=== PATIENT | female | born 2000 | race Caucasian/White ===

== ENCOUNTER 2019-11-19 09:55 | Emergency (ER) | payer MEDICAID ==
[~2019-11-19] VITALS: Ht 162.6 cm; Wt 54.5 kg
[2019-11-19 09:58] VITALS: Ht 162.6 cm; Wt 54.5 kg
[2019-11-19 10:14] LABS: BILIRUBIN NEGATIVE (NEGATIVE); GLUCOSE NEGATIVE (NEGATIVE); KETONE NEGATIVE (NEGATIVE); NITRITE NEGATIVE (NEGATIVE); UROBILINOGEN NORMAL (NORMAL)
[2019-11-19 10:18] LABS: BACTERIA MANY /hpf (NEGATIVE); EPITHELIAL CELLS 0-5 /hpf (0-5); RED CELLS - URINE 0-5 /hpf (0-5)
[2019-11-19 11:09] LABS: HEMATOCRIT 36.8 % (36.0-48.0); HEMOGLOBIN 12.6 g/dL (12-16); LYMPHOCYTES 21.8 % (15-50); MCH 28.7 pg (26.0-34.0); MCHC 34.2 g/dL (31.0-37.0); MCV 83.8 fL (80.0-100.0); MEAN PLATELET VOLUME 8.3 fL (7.4-10.4); PLATELET COUNT 273 10x3/uL (130-400); RBC 4.39 10x6/uL (4.00-5.40); RDW 12.6 % (11.5-14.5); WBC 8.3 10x3/uL (4.8-10.8)
[2019-11-19 11:13] LABS: CALC OSMOLALITY 271 mosm/kg (275-300); CALCIUM 8.4 mg/dL (8.5-10.1); CARBON DIOXIDE 26.7 mmol/L (21.0-32.0); CHLORIDE - SERUM 102 mmol/L (98-107); GLUCOSE 99 mg/dL (74-106); POTASSIUM - SERUM 3.7 mmol/L (3.5-5.1); SODIUM 137 mmol/L (136-145); UREA NITROGEN 7 mg/dL (7-18); eGFR NON AFRICAN AMERICAN 75 mL/min (90-120)
[2019-11-19 11:20] LABS: ALBUMIN 3.5 g/dL (3.4-5.0); ALKALINE PHOSPHATASE 71 U/L (30-120); ALT (SGPT) 16 U/L (10-68); BILIRUBIN - TOTAL 0.38 mg/dL (0.2-1.3); HCG - QUANTITATIVE (MATERNAL) 183 mIU/mL; PROTEIN - SERUM 6.7 g/dL (6.4-8.2)
[2019-11-19] MEDS ORDERED: KEFLEX500 MG PO (12:28)
[2019-11-19 13:09] VITALS: BP 120/62
== END 2019-11-19 13:09 | disposition home or self-care (01) ==
LOC: D.ER 09:55
PROVIDERS: Family Medicine
DX: O23.41 Unspecified infection of urinary tract in pregnancy, first trimester (principal); O20.0 Threatened abortion; R10.9 Unspecified abdominal pain; Z3A.00 Weeks of gestation of pregnancy not specified

== ENCOUNTER 2020-07-05 09:25 | Outpatient (CLI) | payer MEDICAID ==
[2020-04-07 20:56] VITALS: BMI 27.1
[~2020-07-05 09:25] MED LIST: KEFLEX500 MG PO; PRENAVITE1 TAB PO
== END 2020-07-05 12:12 ==
LOC: D.LDO 09:25
PROVIDERS: ATTEND Student in an Organized Health Care Education/Training Program
DX: O13.9 Gestational [pregnancy-induced] hypertension without significant proteinuria, unspecified trimester (principal)

== ENCOUNTER 2020-07-09 14:10 | Outpatient (CLI) | payer MEDICAID ==
[2020-04-07 20:56] VITALS: BMI 27.1
[2020-07-11 19:32] VITALS: BMI 30.8
== END 2020-07-09 14:48 | disposition home or self-care (01) ==
LOC: D.LDO 14:10
PROVIDERS: ATTEND Student in an Organized Health Care Education/Training Program
DX: O16.9 Unspecified maternal hypertension, unspecified trimester (principal)

== ENCOUNTER 2020-07-11 12:55 | Inpatient (IN) | payer MEDICAID ==
[~2020-07-11] VITALS: Ht 162.6 cm; Wt 81.2 kg
[2020-07-11 14:08] LABS: BASOPHILS 0.1 % (0-2); EOSINOPHILS 0.3 % (0-7); HEMATOCRIT 31.9 % (36.0-48.0); HEMOGLOBIN 9.9 g/dL (12-16); IMMATURE GRANULOCYTES 0.6 % (0-5); LYMPHOCYTE ABS# 2.02 10x3/uL (1.18-3.74); LYMPHOCYTES 14.5 % (15-50); MCH 24.9 pg (26.0-34.0); MCV 80.2 fL (80.0-100.0); MEAN PLATELET VOLUME 8.1 fL (7.4-10.4); MONOCYTES 6.1 % (2-11); NEUTROPHIL ABS# 10.93 10x3/uL (1.56-6.13); NEUTROPHILS 78.4 % (40-80); PLATELET COUNT 210 10x3/uL (130-400); RBC 3.98 10x6/uL (4.00-5.40); RDW 14.7 % (11.5-14.5); WBC 13.9 10x3/uL (4.8-10.8)
[2020-07-11 14:10] LABS: CALC OSMOLALITY 264 mosm/kg (275-300); CALCIUM 8.4 mg/dL (8.5-10.1); CARBON DIOXIDE 22.3 mmol/L (21.0-32.0); CHLORIDE - SERUM 102 mmol/L (98-107); CREATININE - SERUM 0.6 mg/dL (0.6-1.3); GLUCOSE 73 mg/dL (74-106); POTASSIUM - SERUM 3.7 mmol/L (3.5-5.1); SODIUM 134 mmol/L (136-145); UREA NITROGEN 6 mg/dL (7-18); eGFR NON AFRICAN AMERICAN > 90 mL/min (90-120)
[2020-07-11 14:16] LABS: ALBUMIN 2.7 g/dL (3.4-5.0); ALKALINE PHOSPHATASE 160 U/L (30-120); ALT (SGPT) 13 U/L (10-68); BILIRUBIN - DIRECT 0.06 mg/dL (0.00-0.30); BILIRUBIN - TOTAL 0.26 mg/dL (0.2-1.3); PROTEIN - SERUM 7.1 g/dL (6.4-8.2); URIC ACID 5.5 mg/dL (2.6-7.2)
[2020-07-11 17:32] LABS: UDS - AMPHET NEGATIVE QUAL (NEGATIVE); UDS - BARB NEGATIVE QUAL (NEGATIVE); UDS - BENZO NEGATIVE QUAL (NEGATIVE); UDS - COCAINE NEGATIVE QUAL (NEGATIVE); UDS - OPIATE NEGATIVE QUAL (NEGATIVE); UDS - PCP NEGATIVE QUAL (NEGATIVE); UDS - THC NEGATIVE QUAL (NEGATIVE)
[2020-07-11 17:34] LABS: BILIRUBIN NEGATIVE (NEGATIVE); KETONE NEGATIVE (NEGATIVE); NITRITE NEGATIVE (NEGATIVE); UROBILINOGEN NORMAL mg/dL (< 2)
[2020-07-11 17:40] LABS: BACTERIA MODERATE HPF (NONE SEEN)
[2020-07-11 19:32] VITALS: BP 128/80; Ht 162.6 cm; Wt 81.2 kg
[2020-07-12 06:11] LABS: RAPID PLASMA REAGIN Non Reactive (Non Reactive)
--- NOTE | 2020-07-12 12:42 | NUR ---
RECIEVED PT AMBULATORY FROM L&D ACCOMPANIED BY HER MOTHER AND L&D STAFF TO ROOM 1218. REPORT RECEIVED FROM YVETTE GUEVARA.
--- NOTE | 2020-07-12 14:50 | NUR ---
MOTHER OF PT TO NURSES DESK ASKING IF PT'S BLOOD PRESSURE COULD BE CHECKED. PT IS IN BATHROOM AND IS C/O FEELING DIZZY. ASSISTED PT BACK TO BED. PT STATES SHE FEELS BETTER AFTER GETTING BACK INTO BED. FUNDUS FIRM 1 BELOW; BLEEDING SCANT WITHOUT CLOTS. BP-107/71,PULSE 104, O2 SAT 98%. INSTRUCTED PT CALL IF NEEDS ASSISTANCE UP TO BATHROOM, IF SATURATING 1 PAD/HR OR PASSES CLOTS BIGGER THAN AN EGG. PT STATES UNDERSTANDING. BED IN LOW POSITION; SIDE RAILS UP X2; CALL LIGHT IN REACH.
--- NOTE | 2020-07-12 17:36 | NUR ---
ROUNDS MADE. PT SITTING UP IN BED WITH BABY IN ARMS . PT'S MOTHER AT BEDSIDE. NO NEEDS OR CONCERNS AT THIS TIME.
--- NOTE | 2020-07-12 19:00 | NUR ---
REPORT GIVEN BY YVETTE BARRETO.
[2020-07-12 20:00] VITALS: BP 93/56
--- NOTE | 2020-07-12 20:30 | NUR ---
PT RESTING IN BED. HER MOM IS WITH HER. PT HAS NO C/O AT ALL SHE GETS UP AND MOVES AROUND IN THE ROOM. SHE IS VOIDING WELL. HEART SOUNDS WNL, LUNGS SOUND CLEAR. PT DOES NOT HAVE AN IV ACCESS. FUNDUS IS FIRM. BLEEDING SMALL ACCORDING TO THE PT. PT HAS NOT WANTED ICE TONIGHT IN HER ANTOLIN AREA. OFFERED JUICE, PUDDING, AND OTHER SNACKS BUT SHE DECLINES.
--- NOTE | 2020-07-12 22:00 | NUR ---
PT IS SLEEPING NOW WITH NO C/O.
[2020-07-13] VITALS: BP 112/54
--- NOTE | 2020-07-13 | NUR ---
PT AWAKE WHEN I WENT IN THE ROOM FOR VS. SHE STILL HAS NO C/O
--- NOTE | 2020-07-13 02:00 | NUR ---
CHECKED IN ON PT. SHE IS RESTING WITH HER EYES CLOSED. RESPIRATIONS REGULAR AND UNLABORED. NO C/O
--- NOTE | 2020-07-13 03:27 | NUR ---
PT ASKED FOR A PAIN PILL. SHE RATES HER PAIN A 5. SHE WAS GIVEN 600 MG OF MOTRIN PER ORDER.
--- NOTE | 2020-07-13 05:00 | NUR ---
PAIN STATES SHE IS FREE OF PAIN AT THIS TIME. SHE IS HOLDING AND FEEDING HER BABY.
--- NOTE | 2020-07-13 06:14 | NUR ---
PT IS RESTING WELL. NO C/O. HER MOM HAS GONE TO GET HER A SONIC DRINK.
--- NOTE | 2020-07-13 06:28 | NUR ---
PT IS RESTING QUIETLY WITHOUT C/O
[2020-07-13 07:05] VITALS: BP 127/73
--- NOTE | 2020-07-13 07:05 | NUR ---
RECEIVED PT SITTING UP IN BED. VISITS WITH MOTHER. MOTHER CARING FOR AT THIS TIME. PT AAO X 3. VSS. HRRR WITHOUT AUDIBLE MURMUR. BBS CLEAR. BS X 4. ABDOMEN SOFT/NON-DISTENDED. FUNDUS FIRM AT U/2. RUBRA LOCHIA SMALL AMT. PT DENIES PASSING CLOTS OR HEAVY BLEEDING. PERINEUM WITH SLIGHT EDEMA NOTED. SKIN PINK. NEG HOMANS' SIGN. PPP. NO EDEMA NOTED TO BLE. PT DENIES H/A, VIS PROBLEMS, EPIG OR RUQ PAIN. PT C/O PAIN TO PERINEUM OF "3-4" ON 0-10 PAIN SCALE. DECLINES PAIN MED AT THIS TIME. SR UP X 2. CALL LIGHT IN REACH.
--- NOTE | 2020-07-13 08:05 | NUR ---
DR VANN VISITS WITH PT. ORDER RECEIVED TO DC PT TO ROOMING IN STATUS.
[2020-07-13 08:32] LABS: BASOPHILS 0.1 % (0-2); EOSINOPHILS 0.1 % (0-7); IMMATURE GRANULOCYTES 0.6 % (0-5); LYMPHOCYTE ABS# 2.71 10x3/uL (1.18-3.74); LYMPHOCYTES 16.8 % (15-50); MCH 24.9 pg (26.0-34.0); MCHC 31.3 g/dL (31.0-37.0); MCV 79.6 fL (80.0-100.0); NEUTROPHIL ABS# 11.98 10x3/uL (1.56-6.13); NEUTROPHILS 74.4 % (40-80); RDW 15.1 % (11.5-14.5); WBC 16.1 10x3/uL (4.8-10.8)
[2020-07-13 08:43] LABS: HEMATOCRIT 22.7 % (36.0-48.0); PLATELET COUNT 155 10x3/uL (130-400); RBC 2.85 10x6/uL (4.00-5.40)
[2020-07-13 08:44] LABS: HEMOGLOBIN 7.1 g/dL (12-16)
--- NOTE | 2020-07-13 08:50 | NUR ---
DR VANN NOTIFIED OF CBC RESULTS. ORDER RECEIVED TO REPEAT CBC AT 1200 TODAY.
--- NOTE | 2020-07-13 09:10 | NUR ---
PT SITTING UP IN BED. CARING FOR INFANT. INFORMED OF ORDER RECEIVED FOR REPEAT CBC AT NOON. PT VERBALIZES UNDERSTANDING. PT REQUEST SL DC'D. INFORMED PT TO WAIT UNTIL AFTER LAB RESULTS AND ORDER FROM PHYSICIAN. PT VERBALIZES UNDERSTANDING.
--- NOTE | 2020-07-13 11:10 | NUR ---
PT LYING TO RIGHT SIDE IN BED. EYES CLOSED. RESP NON-LABORED. PT NOT DISTURBED TO ALLOW FOR REST. PT MOTHER CARING FOR AT THIS TIME.
[2020-07-13 13:39] VITALS: BP 122/71
--- NOTE | 2020-07-13 13:40 | NUR ---
PT SITTING UP IN BED. HOLDS WITH MUCH WARMTH SHOWN. VSS. PT DENIES NEEDS OR C/O.
[2020-07-13 13:54] LABS: BASOPHILS 0.1 % (0-2); EOSINOPHILS 0.2 % (0-7); HEMATOCRIT 24.1 % (36.0-48.0); IMMATURE GRANULOCYTES 0.8 % (0-5); LYMPHOCYTE ABS# 2.77 10x3/uL (1.18-3.74); LYMPHOCYTES 18.7 % (15-50); MCH 24.8 pg (26.0-34.0); MCHC 31.1 g/dL (31.0-37.0); MCV 79.8 fL (80.0-100.0); MEAN PLATELET VOLUME 8.1 fL (7.4-10.4); MONOCYTES 6.9 % (2-11); NEUTROPHIL ABS# 10.83 10x3/uL (1.56-6.13); NEUTROPHILS 73.3 % (40-80); RBC 3.02 10x6/uL (4.00-5.40); WBC 14.8 10x3/uL (4.8-10.8)
[2020-07-13 14:01] LABS: HEMOGLOBIN 7.5 g/dL (12-16); PLATELET COUNT 189 10x3/uL (130-400)
--- NOTE | 2020-07-13 14:03 | NUR ---
CBC AND VITAL SIGNS CALLED TO DR VANN. STATES WILL COME SEE PT.
--- NOTE | 2020-07-13 14:20 | NUR ---
DR VANN VISITS WITH PT.
--- NOTE | 2020-07-13 14:42 | NUR ---
SALINE [employer]OCK DC'D WITH [employer] INTACT. PRESSURE BANDAGE TO SITE. PT UP TO SHOWER. LINENS PROVIDED.
--- NOTE | 2020-07-13 15:00 | NUR ---
PT AMBULATORY IN ROOM. STATES FEELS BETTER SINCE SHOWER. DENIES NEEDS OR C/O.
[2020-07-13] MEDS ORDERED: FERROUS SULFAT325 MG PO (15:02)
[2020-07-13] MEDS ORDERED: IBUPROFEN800 MG PO (15:03)
--- NOTE | 2020-07-13 15:25 | NUR ---
DISCHARGE INSTRUCTIONS GIVEN TO PT. PT VERBALIZES UNDERSTANDING OF ALL INSTRUCTIONS. COPIES GIVEN TO PT. PT GIVEN RX FOR FERROUS SULFATE AND IBUPROFEN. ROOMING IN POLICY EXPLAINED TO AND SIGNED BY PT.
--- NOTE | 2020-07-13 16:00 | NUR ---
PT DISCHARGED TO ROOMING IN STATUS.
== END 2020-07-13 16:00 | disposition home or self-care (01) | DRG 807 ==
LOC: D.LD 12:55 → D.WS 07-12 12:41
PROVIDERS: Obstetrics & Gynecology; ADMIT Student in an Organized Health Care Education/Training Program; ATTEND Student in an Organized Health Care Education/Training Program
PROC: 10E0XZZ Delivery of Products of Conception, External Approach (ICD-10-PCS; principal; 2020-07-12)
PROC: 0HQ9XZZ Repair Perineum Skin, External Approach (ICD-10-PCS; 2020-07-12)
DX: O13.4 Gestational [pregnancy-induced] hypertension without significant proteinuria, complicating childbirth (principal); Z37.0 Single live birth; Z3A.37 37 weeks gestation of pregnancy; O69.81X0 Labor and delivery complicated by cord around neck, without compression, not applicable or unspecified; O99.824 Streptococcus B carrier state complicating childbirth; O70.0 First degree perineal laceration during delivery; O99.02 Anemia complicating childbirth; D64.9 Anemia, unspecified; O14.04 Mild to moderate pre-eclampsia, complicating childbirth

== ENCOUNTER 2020-10-09 21:35 | Emergency (ER) | payer MEDICAID ==
[2020-07-11 19:32] VITALS: BMI 30.8
[~2020-10-09 21:35] MED LIST changes: +FERROUS SULFAT325 MG PO; +IBUPROFEN800 MG PO
== END 2020-10-09 22:23 | disposition left against medical advice (07) ==
LOC: D.ER 21:35
DX: T78.1XXA Other adverse food reactions, not elsewhere classified, initial encounter (principal); Z53.21 Procedure and treatment not carried out due to patient leaving prior to being seen by health care provider